=== PATIENT | female | born 1990 | race Caucasian/White ===

== ENCOUNTER 2018-12-04 17:23 | Emergency (ER) | payer SELFPAY ==
[~2018-12-04] VITALS: Ht 172.7 cm; Wt 77.0 kg
[2018-12-04] MEDS ORDERED: KETOROLAC 15MG/ML VIAL IM ONE (19:30)
[2018-12-04] MEDS ORDERED: DEXAMETHASONE 10 MG/ML VIAL IM ONE (19:30)
[2018-12-04] MEDS ORDERED: ACETAMINOPHEN 325MG TABLET PO ONE (19:30)
[2018-12-04 20:19] VITALS: BP 121/69
== END 2018-12-04 20:41 | disposition home or self-care (01) ==
LOC: ER 17:23
DX: J02.9 Acute pharyngitis, unspecified (principal)
CPT/HCPCS: 96372; 99283; J1100; J1885

== ENCOUNTER 2020-11-14 12:26 | Emergency (ER) | payer MEDICAID ==
[~2020-11-14] VITALS: Ht 170.2 cm; Wt 80.0 kg
[2020-11-14] MEDS ORDERED: MORPHINE SULFATE 4 MG/ML CPJ (NOT FOR IM USE) IV STA (14:57)
[2020-11-14] MEDS ORDERED: SODIUM CHLORIDE 0.9% 1,000 ML IV ONE (15:00)
[2020-11-14 15:21] LABS: BASOPHILS % 0.3 % (0.0-2.0); EOSINOPHILS % 2.6 % (0.0-5.0); HEMATOCRIT. 41.2 % (36.0-48.0); HEMOGLOBIN. 13.9 g/dL (12.0-16.0); LYMPHOCYTES % 15.9 % (20.0-50.0); MEAN CORPUSCULAR HEMOGLOBIN 31.3 pg (28.0-32.0); MEAN CORPUSCULAR VOLUME 92.8 fL (81.0-99.0); MEAN PLATELET VOLUME 8.5 fl (7.4-10.4); MONOCYTES % 6.6 % (2.0-8.0); NEUTROPHILS % 74.6 % (40.0-76.0); PLATELET 306 x1000/uL (130-400); RED BLOOD CELL COUNT 4.44 mill/uL (4.2-5.4); RED CELL DISTRIBUTION WIDTH 14.2 % (11.6-14.6)
[2020-11-14 15:22] LABS: CHLORIDE 107 mEq/L (98-107)
[2020-11-14 15:33] LABS: CLARITY URINE CLEAR (CLEAR); COLOR URINE YELLOW (YELLOW); KETONES URINE NEGATIVE (NEGATIVE); LEUKOCYTE ESTERASE URINE 2+ (NEGATIVE); NITRITE URINE NEGATIVE (NEGATIVE); OCCULT BLOOD URINE 1+ (NEGATIVE); PROTEIN URINE NEGATIVE (NEGATIVE); SPECIFIC GRAVITY URINE 1.014 (1.005-1.030); UROBILINOGEN URINE 0.2 E.U./dL (0.2-1.0)
[2020-11-14] MEDS ORDERED: KETOROLAC 15MG/ML VIAL IV ONE (17:45)
[2020-11-14 18:05] VITALS: BP 112/70
[2020-11-14] MEDS ORDERED: IBUP-2029 MT (18:48)
[2020-11-14] MEDS ORDERED: CEPH250T MT (18:48)
== END 2020-11-14 19:00 | disposition home or self-care (01) ==
LOC: ER 12:26
DX: N39.0 Urinary tract infection, site not specified (principal); E86.0 Dehydration
CPT/HCPCS: 36415; 74176; 76830; 76856; 80053; 81003; 81025; 83690; 85025; 96374; 96375; 99285; J1885; J2270

== ENCOUNTER 2021-07-08 10:47 | Emergency (ER) | payer MEDICAID ==
[~2021-07-08] VITALS: Ht 172.7 cm; Wt 77.0 kg
[~2021-07-08 10:47] MED LIST: CEPH250T MT; IBUP-2029 MT
[2021-07-08 10:51] VITALS: BP 132/84
[2021-07-08] MEDS ORDERED: BACITRACIN ZINC OINT UDPKT TOP ONE (11:15)
[2021-07-08] MEDS ORDERED: LIDOCAINE HCL/EPINEPHRINE 1%-EPI 1:100,000 20 ML VIAL INFIL ONE (11:15)
[2021-07-08] MEDS ORDERED: TETANUS, DIPHTHERIA, PERTUSSIS VAC/PF 0.5ML (>10YR OLD) IM ONE (11:15)
[2021-07-08] MEDS ORDERED: LIDOCAINE HCL/EPINEPHRINE 1%-EPI 1:100,000 10 ML VIAL INFIL SCH (12:00)
[2021-07-08] MEDS ORDERED: AMOX-424 MT (12:47)
[2021-07-08] MEDS ORDERED: T3 PO (12:47)
[2021-07-08] MEDS ORDERED: KETOROLAC 30MG/ML VIAL IM ONE (13:15)
== END 2021-07-08 13:59 | disposition home or self-care (01) ==
LOC: ER 10:47
DX: H61.001 Unspecified perichondritis of right external ear (principal)
CPT/HCPCS: 81025; 90471; 90715; 96372; 99284; J1885; J3490

== ENCOUNTER 2021-09-28 17:52 | Emergency (ER) | payer MEDICAID ==
[~2021-09-28] VITALS: Ht 172.7 cm; Wt 77.0 kg
[~2021-09-28 17:52] MED LIST changes: +AMOX-424 MT; +T3 PO
[2021-09-28] MEDS ORDERED: KETOROLAC 30MG/ML VIAL IV STA (18:02)
[2021-09-28] MEDS ORDERED: ONDANSETRON HCL 4MG/2ML INJ IV STA (18:02)
[2021-09-28] MEDS ORDERED: SODIUM CHLORIDE 0.9% 1,000 ML IV ONE (18:15)
[2021-09-28 18:59] LABS: BASOPHILS % 0.4 % (0.0-2.0); EOSINOPHILS % 0.4 % (0.0-5.0); HEMATOCRIT. 41.1 % (36.0-48.0); HEMOGLOBIN. 14.1 g/dL (12.0-16.0); LYMPHOCYTES % 9.9 % (20.0-50.0); MEAN CORPUSCULAR HEMOGLOBIN 30.8 pg (28.0-32.0); MEAN PLATELET VOLUME 8.5 fl (7.4-10.4); NEUTROPHILS % 84.3 % (40.0-76.0); PLATELET 217 x1000/uL (130-400); RED BLOOD CELL COUNT 4.57 mill/uL (4.2-5.4); RED CELL DISTRIBUTION WIDTH 13.5 % (11.6-14.6)
[2021-09-28 19:07] LABS: CHLORIDE 105 mEq/L (98-107)
[2021-09-28] MEDS ORDERED: KETOROLAC 30MG/ML VIAL IV SCH (22:00)
[2021-09-28] MEDS ORDERED: ONDANSETRON HCL 4MG/2ML INJ IV SCH (22:00)
[2021-09-28] MEDS ORDERED: SODIUM CHLORIDE 0.9% IV SCH (22:00)
[2021-09-28] MEDS ORDERED: MORPHINE SULFATE 4 MG/ML CPJ (NOT FOR IM USE) IV ONE (23:15)
[2021-09-29 00:27] LABS: CLARITY URINE CLOUDY (CLEAR); COLOR URINE DARK YELLOW (YELLOW); KETONES URINE 4+ (NEGATIVE); LEUKOCYTE ESTERASE URINE NEGATIVE (NEGATIVE); NITRITE URINE NEGATIVE (NEGATIVE); OCCULT BLOOD URINE 2+ (NEGATIVE); PH URINE 5.5 (4.5-8.0); PROTEIN URINE 1+ (NEGATIVE); SPECIFIC GRAVITY URINE 1.034 (1.005-1.030)
[2021-09-29] MEDS ORDERED: MORPHINE SULFATE 4 MG/ML CPJ (NOT FOR IM USE) IV ONE (01:30)
[2021-09-29] MEDS ORDERED: METR500T MT (01:36)
[2021-09-29] MEDS ORDERED: ONDA4TAB5 MT (01:36)
[2021-09-29] MEDS ORDERED: CIPR-263 MT (01:36)
[2021-09-29] MEDS ORDERED: HYDR-4001 MT (01:36)
[2021-09-29 01:50] VITALS: BP 129/61
== END 2021-09-29 01:59 | disposition home or self-care (01) ==
LOC: ER 17:52
DX: K52.9 Noninfective gastroenteritis and colitis, unspecified (principal)
CPT/HCPCS: 36415; 74176; 80053; 81003; 83690; 85025; 93005; 96361; 96374; 96375; 96376; 99285; J1885; J2270; J2405; J7030